=== PATIENT | male | born 1970 | race Caucasian/White ===

== ENCOUNTER 2018-01-20 12:23 | Emergency (ER) | payer OTHER, MEDICAID | END 2018-01-20 16:23 | disposition home or self-care (01) | LOC: FTE 12:23 | DX: M54.2 Cervicalgia (principal); F41.9 Anxiety disorder, unspecified; I10 Essential (primary) hypertension; Z87.891 Personal history of nicotine dependence | CPT/HCPCS: 72040; 99283-25 ==

== ENCOUNTER 2018-06-03 06:00 | Inpatient (IN) | payer MEDICAID, OTHER ==
[2018-06-03] MEDS: ALBUTEROL 0.5% (NEB) 2.5 MG/0.5 ML AMP INH (06:35)
[2018-06-03] MEDS: IPRATROPIUM (NEB) 0.5 MG/2.5 ML AMP INH (06:36)
[2018-06-03] MEDS: METHYLPREDNISOLONE 125 MG INJ IV (06:42)
[2018-06-03 06:53] LABS: ADD MAN DIFF? NO
[2018-06-03 06:58] LABS: WHITE BLOOD COUNT 10.5 10^3/ul (4.8-10.8)
[2018-06-03 06:58] LABS: BASOPHIL # 0.1 10^3/ul (0.0-0.1); EOSINOPHILS # 0.7 10^3/ul (0.0-0.5); EOSINOPHILS % 6.7 % (0.0-7.0); HEMATOCRIT 44.5 % (42.0-52.0); LYMPHOCYTES # 2.8 10^3/ul (0.8-2.9); LYMPHOCYTES % 26.8 % (15.0-51.0); MEAN CORPUSCULAR HEMOGLOBIN 31.5 pg (29.0-33.0); MEAN CORPUSCULAR HGB CONC 33.7 g/dl (32.0-37.0); MEAN CORPUSCULAR VOLUME 93.5 fl (82.0-101.0); MEAN PLATELET VOLUME 10.1 fl (7.4-10.4); MONOCYTE # 0.6 10^3/ul (0.3-0.9); MONOCYTES % 5.6 % (0.0-11.0); NEUTROPHIL # 6.2 10^3/ul (1.6-7.5); NEUTROPHILS % 59.6 % (39.0-77.0); PLATELET COUNT 321 10^3/UL (140-415); RED BLOOD COUNT 4.76 10^6/ul (4.70-6.10); RED CELL DISTRIBUTION WIDTH 14.5 % (11.5-14.5)
[2018-06-03 07:23] LABS: ANION GAP 13 (5-13); BLOOD UREA NITROGEN 9 mg/dl (7-20); CALCIUM 8.8 mg/dl (8.4-10.2); CARBON DIOXIDE 26 mmol/L (21-31); CHLORIDE 100 mmol/L (97-110); CREATININE 0.76 mg/dl (0.61-1.24); Estimated GFR > 60 mL/min (>60); GLUCOSE 141 mg/dl (70-220); POTASSIUM 4.2 mmol/L (3.5-5.1); SODIUM 139 mmol/L (135-144)
[2018-06-03] MEDS ORDERED: ONDANSETRON 4 MG INJ IV (10:00)
[2018-06-03] MEDS ORDERED: ACETAMINOPHEN 325 MG TAB PO (10:00)
[2018-06-03] MEDS ORDERED: hydrALAzine 20 MG INJ IV (12:30)
[2018-06-03] MEDS ORDERED: GLUCAGON 1 MG INJ IM (13:00)
[2018-06-03] MEDS ORDERED: GLUCOSE GEL 15 GRAM TUBE PO ×2 (13:00)
[2018-06-03] MEDS ORDERED: DEXTROSE 50% 50 ML SYRINGE IV ×2 (13:00)
[2018-06-03] MEDS ORDERED: GLUCOSE GEL 15 GRAM TUBE BUCCAL (13:00)
[2018-06-03 13:22] LABS: B-TYPE NATRIURETIC PEPTIDE 31 PG/ML (0-125)
[2018-06-03] MEDS: ALBUTEROL/IPRATROPIUM (NEB) 3 ML AMP NEB ×3 (13:27→20:57)
[2018-06-03] MEDS: LISINOPRIL 20 MG TAB PO (14:01)
[2018-06-03] MEDS: CEFTRIAXONE 1 GM/50 ML (PMX) 50 ML IVPB (14:02)
[2018-06-03] MEDS: AZITHROMYCIN 500MG/NS (PMX) 250 ML IV (14:48)
[2018-06-03] MEDS: ACCU-CHEK XX ×2 (17:33→20:00)
[2018-06-03] MEDS: metFORMIN 500 MG TAB PO (17:34)
[2018-06-03] MEDS: INSULIN ASPART [NOVOLOG] 3 ML PEN SC ×2 (17:42→20:00)
[2018-06-03] MEDS ORDERED: ATORVASTATIN 20 MG TAB (19:55)
[2018-06-03] MEDS: ATORVASTATIN 20 MG TAB PO (20:00)
[2018-06-04] MEDS: ALBUTEROL/IPRATROPIUM (NEB) 3 ML AMP NEB ×6 (00:59→21:00)
[2018-06-04] MEDS: ACCU-CHEK XX ×5 (02:00→21:00)
[2018-06-04 06:34] LABS: ADD MAN DIFF? NO
[2018-06-04 06:38] LABS: BASOPHIL # 0.1 10^3/ul (0.0-0.1); BASOPHILS % 0.4 % (0.0-2.0); EOSINOPHILS % 0.3 % (0.0-7.0); HEMATOCRIT 42.8 % (42.0-52.0); HEMOGLOBIN 13.9 g/dl (14.0-18.0); LYMPHOCYTES # 2.8 10^3/ul (0.8-2.9); LYMPHOCYTES % 21.5 % (15.0-51.0); MEAN CORPUSCULAR HGB CONC 32.5 g/dl (32.0-37.0); MEAN CORPUSCULAR VOLUME 95.3 fl (82.0-101.0); MEAN PLATELET VOLUME 10.5 fl (7.4-10.4); MONOCYTE # 1.3 10^3/ul (0.3-0.9); MONOCYTES % 9.9 % (0.0-11.0); NEUTROPHIL # 8.7 10^3/ul (1.6-7.5); NEUTROPHILS % 67.3 % (39.0-77.0); PLATELET COUNT 331 10^3/UL (140-415); RED BLOOD COUNT 4.49 10^6/ul (4.70-6.10); RED CELL DISTRIBUTION WIDTH 14.9 % (11.5-14.5)
[2018-06-04 06:38] LABS: WHITE BLOOD COUNT 12.9 10^3/ul (4.8-10.8)
[2018-06-04 07:03] LABS: ANION GAP 13 (5-13); BLOOD UREA NITROGEN 16 mg/dl (7-20); CALCIUM 9.6 mg/dl (8.4-10.2); CARBON DIOXIDE 26 mmol/L (21-31); CHLORIDE 104 mmol/L (97-110); CREATININE 0.81 mg/dl (0.61-1.24); Estimated GFR > 60 mL/min (>60); GLUCOSE 124 mg/dl (70-220); MAGNESIUM 2.4 mg/dl (1.7-2.5); POTASSIUM 4.1 mmol/L (3.5-5.1); SODIUM 143 mmol/L (135-144)
[2018-06-04] MEDS: INSULIN ASPART [NOVOLOG] 3 ML PEN SC ×4 (07:40→21:00)
[2018-06-04] MEDS: metFORMIN 500 MG TAB PO ×2 (08:12→17:56)
[2018-06-04] MEDS: LISINOPRIL 20 MG TAB PO (08:12)
[2018-06-04] MEDS: THYROID 30 MG TAB PO (08:12)
[2018-06-04] MEDS: METHYLPREDNISOLONE 125 MG INJ IV (08:13)
[2018-06-04] MEDS ORDERED: MAGNESIUM SULFATE 2 GM/50 ML 50 ML IVPB (11:00)
[2018-06-04] MEDS: CEFTRIAXONE 1 GM/50 ML (PMX) 50 ML IVPB (12:14)
[2018-06-04] MEDS: AZITHROMYCIN 500MG/NS (PMX) 250 ML IV (15:12)
[2018-06-04] MEDS: ATORVASTATIN 20 MG TAB PO (21:09)
[2018-06-05] MEDS: ALBUTEROL/IPRATROPIUM (NEB) 3 ML AMP NEB ×4 (01:45→14:14)
[2018-06-05] MEDS: ACCU-CHEK XX ×3 (02:00→12:30)
[2018-06-05 05:58] LABS: ADD MAN DIFF? NO
[2018-06-05 05:59] LABS: WHITE BLOOD COUNT 10.6 10^3/ul (4.8-10.8)
[2018-06-05 05:59] LABS: BASOPHIL # 0.1 10^3/ul (0.0-0.1); BASOPHILS % 0.6 % (0.0-2.0); EOSINOPHILS # 0.1 10^3/ul (0.0-0.5); EOSINOPHILS % 1.2 % (0.0-7.0); HEMATOCRIT 41.2 % (42.0-52.0); HEMOGLOBIN 13.5 g/dl (14.0-18.0); LYMPHOCYTES # 3.4 10^3/ul (0.8-2.9); LYMPHOCYTES % 31.6 % (15.0-51.0); MEAN CORPUSCULAR HEMOGLOBIN 31.6 pg (29.0-33.0); MEAN CORPUSCULAR HGB CONC 32.8 g/dl (32.0-37.0); MEAN CORPUSCULAR VOLUME 96.5 fl (82.0-101.0); MEAN PLATELET VOLUME 10.1 fl (7.4-10.4); MONOCYTE # 0.9 10^3/ul (0.3-0.9); MONOCYTES % 8.3 % (0.0-11.0); NEUTROPHIL # 6.1 10^3/ul (1.6-7.5); PLATELET COUNT 300 10^3/UL (140-415); RED BLOOD COUNT 4.27 10^6/ul (4.70-6.10); RED CELL DISTRIBUTION WIDTH 15.3 % (11.5-14.5)
[2018-06-05 06:25] LABS: HEMOGLOBIN A1C 6.4 % (0-5.9)
[2018-06-05 06:30] LABS: ANION GAP 7 (5-13); BLOOD UREA NITROGEN 18 mg/dl (7-20); CALCIUM 9.1 mg/dl (8.4-10.2); CARBON DIOXIDE 27 mmol/L (21-31); CHLORIDE 105 mmol/L (97-110); CREATININE 0.71 mg/dl (0.61-1.24); Estimated GFR > 60 mL/min (>60); GLUCOSE 109 mg/dl (70-220); MAGNESIUM 2.2 mg/dl (1.7-2.5); POTASSIUM 4.4 mmol/L (3.5-5.1); SODIUM 139 mmol/L (135-144)
[2018-06-05] MEDS: INSULIN ASPART [NOVOLOG] 3 ML PEN SC ×2 (08:00→12:00)
[2018-06-05] MEDS: LISINOPRIL 20 MG TAB PO (09:16)
[2018-06-05] MEDS: THYROID 30 MG TAB PO (09:16)
[2018-06-05] MEDS: metFORMIN 500 MG TAB PO (09:17)
[2018-06-05] MEDS: METHYLPREDNISOLONE 125 MG INJ IV (09:18)
[2018-06-05] MEDS: CEFTRIAXONE 1 GM/50 ML (PMX) 50 ML IVPB (12:48)
[2018-06-05] MEDS: AZITHROMYCIN 500MG/NS (PMX) 250 ML IV (14:15)
== END 2018-06-05 16:25 | disposition home or self-care (01) | DRG 190 ==
LOC: PP2 06-04 17:00 → E/R 06:00 → 6WM 09:32
DX: J44.0 Chronic obstructive pulmonary disease with (acute) lower respiratory infection (principal); J96.00 Acute respiratory failure, unspecified whether with hypoxia or hypercapnia; Z68.42 Body mass index [BMI] 45.0-49.9, adult; J20.9 Acute bronchitis, unspecified; J44.1 Chronic obstructive pulmonary disease with (acute) exacerbation; E66.01 Morbid (severe) obesity due to excess calories; R73.03 Prediabetes; Z72.0 Tobacco use; E03.9 Hypothyroidism, unspecified; F15.10 Other stimulant abuse, uncomplicated
CPT/HCPCS: 71045; 80048; 82962; 83036; 83735; 83880; 84443; 85025; 90686; 93005; 93306; 94640; 94644; 94664; 96374; 99285-25

== ENCOUNTER 2018-12-13 09:15 | Emergency (ER) | payer OTHER ==
[2018-12-13] MEDS: KETOROLAC 30 MG INJ IM (09:53)
== END 2018-12-13 10:35 | disposition home or self-care (01) ==
LOC: FTE 10:35
DX: S16.1XXA Strain of muscle, fascia and tendon at neck level, initial encounter (principal); I10 Essential (primary) hypertension; F17.210 Nicotine dependence, cigarettes, uncomplicated; V49.40XA Driver injured in collision with unspecified motor vehicles in traffic accident, initial encounter
CPT/HCPCS: 72040; 96372; 99284-25

== ENCOUNTER 2018-12-22 06:32 | Emergency (ER) | payer OTHER ==
[2018-12-22] MEDS: DEXAMETHASONE 10 MG/ML 1 ML INJ IM (07:05)
[2018-12-22] MEDS: DIAZEPAM 5 MG TAB PO (07:05)
[2018-12-22] MEDS: KETOROLAC 60 MG INJ IM (07:05)
== END 2018-12-22 07:28 | disposition home or self-care (01) ==
LOC: FTE 07:28
DX: M54.5 Low back pain (principal); F17.210 Nicotine dependence, cigarettes, uncomplicated; I10 Essential (primary) hypertension; Z79.84 Long term (current) use of oral hypoglycemic drugs
CPT/HCPCS: 96372; 99284-25; J1100